=== PATIENT | female | born 1995 | race Caucasian/White ===

== ENCOUNTER 2019-05-24 13:37 | Emergency (ER) | payer OTHER ==
[~2019-05-24] VITALS: Ht 167.6 cm; Wt 50.8 kg
[2019-05-24] MEDS ORDERED: NKM (13:43)
[2019-05-24 13:58] VITALS: BP 95/69
--- NOTE | 2019-05-24 13:59 | NUR ---
ED Nurse Note: pt came to ed c/o laceration on the left hand, pt stated she tried to grab a ceramic pot, didnt know if it broke on her hand or if its broken when she reached it. pt is complaining of 10/10 pain. noted with laceration on the left hand and is actively bleeding. pressure placed on pt left hand and elevated it. will continue to monitor.
[2019-05-24] MEDS ORDERED: Bacitracin Oint UD TOPIC ONE (14:30)
[2019-05-24] MEDS ORDERED: LORazepam 0.5mg tab ORAL ONE (14:30)
[2019-05-24] MEDS ORDERED: Lidocaine 2% 20mg/ml/Epi 0.005mg/ml 20ml vial INJ ONE (14:30)
[2019-05-24] MEDS ORDERED: CEPHALEXIN500 MG ORAL (15:04)
[2019-05-24] MEDS ORDERED: BACITRACIN-P28.35 GM TP (15:04)
--- NOTE | 2019-05-24 15:04 | Emergency Room Report ---
History of Present Illness General Chief Complaint: Laceration Source: Patient Present Illness HPI 24-year-old female presents to the emergency department complaining of 10 out of 10 severity pain, tenderness, open wound and bleeding to the lateral aspect of the left hand x1 day. Patient reports she was reaching into cupboard and a broken ceramic dish lacerated her. Patient denies small fragments or suspicion of foreign bodies. Patient denies taking blood thinning medication she states she is up-to-date with her tetanus vaccination. Patient reports that palpation exacerbates her pain. She denies any relieving factors at this time. Patient also reports significant history of anxiety and reiterates that she is very nervous about her ED visit today. Denies paresthesias, or skin color/ temperature changes to the affected extremity. She denies suspicion of . Allergies: Coded Allergies: No Known Allergies (Unverified , 05/24/19) Patient History Past Medical History: see triage record Past Surgical History: none Pertinent Family History: none Now: No Immunizations: UTD Reviewed Nursing Documentation: PMH: Agreed; PSxH: Agreed Nursing Documentation-PMH Past Medical History: No Stated History Review of Systems All Other Systems: negative except mentioned in HPI Physical Exam Vital Signs Date Time Temp Pulse Resp B/P (MAP) Pulse Ox O2 Delivery O2 Flow Rate FiO2 05/24/19 13:41 98.1 69 17 95/69 (78) 100 Room Air Sp02 EP Interpretation: reviewed, normal General Appearance: alert, GCS 15, non-toxic, mild distress - anxious Head: normocephalic, atraumatic Eyes: bilateral eye normal inspection, bilateral eye PERRL ENT: hearing grossly normal, normal voice Neck: full range of motion Respiratory: lungs clear, normal breath sounds, speaking full sentences Cardiovascular #1: regular rate, rhythm, normal capillary refill Musculoskeletal: back normal, gait/station normal, normal range of motion, non- tender Neurologic: alert, oriented x3, responsive, motor strength/tone normal, sensory intact, speech normal, grossly normal Psychiatric: judgement/insight normal, anxious Skin: laceration - left hand laceration approx 3 cm in length, located at the lateral aspect just proximal to the left 5th digit. Procedures Laceration/Wound Repair Laceration/Wound Repair : Consent: Verbal Wound Location: upper extremity - left hand Wound's Depth, Shape: linear Wound Length (cm): 3 Wound Explored: clean Irrigated w/ Saline (ccs): 300 Anesthesia: Lidocaine w/ Epi Volume Anesthetic (ccs): 3 Wound Repaired With: sutures Suture Size/Type: 4:0 Number of Sutures: 5 Layer Closure?: No Sterile Dressing Applied?: Yes Splint Applied?: Yes Type of Splint Applied: long finger splint Sling Applied?: No Patient Tolerated: Well Complications: None Medical Decision Making PA Attestation Dr. Sandra Is my supervising Physician whom patient management has been discussed with. Diagnostic Impression: Primary Impression: Laceration ER Course 24-year-old female presents to the emergency department complaining of 10 out of 10 severity pain, tenderness, open wound and bleeding to the lateral aspect of the left hand x1 day. Patient reports she was reaching into cupboard and a broken ceramic dish lacerated her. Patient denies small fragments or suspicion of foreign bodies. Patient denies taking blood thinning medication she states she is up-to-date with her tetanus vaccination. Patient reports that palpation exacerbates her pain. She denies any relieving factors at this time. Patient also reports significant history of anxiety and reiterates that she is very nervous about her ED visit today. Denies paresthesias, or skin color/ temperature changes to the affected extremity. She denies suspicion of . Ddx considered but are not limited to laceration, tendon injury, cellulitis, amputation Vital signs: are WNL, pt. is afebrile H&PE are most consistent with: left hand laceration approx 3 cm in length ORDERS: none required at this time, the diagnosis is clinical ED INTERVENTIONS: - Ativan 0,5 PO -Tylenol 650 mg PO - The wound was copiously irrigated with normal saline, and explored for foreign body for which no FB was found. - pt. is anesthetized with 2%lidocaine w. epi. - The wound was approximated and closed using 5 interrupted 4.0 Ethilon sutures. -Bacitracin and sterile dressing is applied. Long Finger Splint applied to the left 5th digit by printing technician. Pt. remains neurovascularly intact. Discussed with patient: That we make every effort to approximate the laceration as best as we can so that scarring will be as cosmetically pleasing as possible with our limited cosmetic skill set in the Emergency dept. Regardless of our best efforts there will be scarring after laceration repair. The extent of scarring is unknown at this time. DISCHARGE: At this time pt. is stable for d/c to home. Will provide printed patient care instructions, and any necessary prescriptions. Care plan and follow up instructions have been discussed with the patient prior to discharge. Last Vital Signs Date Time Temp Pulse Resp B/P (MAP) Pulse Ox O2 Delivery O2 Flow Rate FiO2 05/24/19 13:58 98.1 69 17 95/69 100 Room Air Disposition: HOME, SELF-CARE Condition: Stable Referrals: NOT CHOSEN IPA/MD,REFERRING (PCP) Patient Instructions: Laceration Care, Adult Additional Instructions: Take medications as directed. SUTURES TO BE REMOVED IN 10-14 days Follow up with a Primary Care Provider in 3-5 days, even if your symptoms have resolved. --Please review list of primary care clinics, if you do not already have a primary care provider Return sooner to ED if new symptoms occur, or current symptoms become worse. - Please note that this Emergency Department Report was dictated using [employer] account supervisor technology software, occasionally this can lead to erroneous entry secondary to interpretation by the dictation equipment. Mercedes Mercado May 24, 2019 15:04
[2019-05-24 15:24] VITALS: BP 102/71
[2019-05-24 15:25] VITALS: BP 102/71
--- NOTE | 2019-05-24 15:25 | NUR ---
ER DISCHARGE NOTE: Patient is cleared to be discharged per ERMD, pt is aox4, on room air, with stable vital signs. pt was given dc and prescription instructions, pt was able to verbalize understanding, pt id band removed. pt is able to ambulate with steady gait. pt took all belongings.
== END 2019-05-24 15:25 | disposition home or self-care (01) ==
LOC: EMR 13:56
DX: S61.217A Laceration without foreign body of left little finger without damage to nail, initial encounter (principal); W26.9XXA Contact with unspecified sharp object(s), initial encounter; Y93.9 Activity, unspecified; Y92.9 Unspecified place or not applicable
CPT/HCPCS: 29130; 99282; 99283

== ENCOUNTER 2019-05-26 13:08 | Emergency (ER) | payer OTHER ==
[~2019-05-26] VITALS: Ht 167.6 cm; Wt 51.3 kg
[~2019-05-26 13:08] MED LIST: BACITRACIN-P28.35 GM TP; CEPHALEXIN500 MG ORAL; NKM
[2019-05-26 13:30] VITALS: BP 107/67
--- NOTE | 2019-05-26 13:31 | NUR ---
ED Nurse Note: Patient walked in to ER for follow up on Lt lateral hand suture. 5 sutures present. no s/s of infection noted. Patient alert and oriented x4 and ambulatory. skin clean and intact. calm and cooperative.
--- NOTE | 2019-05-26 13:41 | Emergency Room Report ---
History of Present Illness General Chief Complaint: Wound Recheck/Suture Removal Source: Patient Present Illness HPI 24-year-old female with no significant past medical history is here for wound check after suture placement that happened at [facility] 2 days ago. Patient has a splint applied to her finger as well as for sutures to the hypothenar side of her left hand. Patient denies any excess pain complains of pulsatile pain at the site of sutures. Denies fever and chills, pus drainage , numbness and tingling. Is able to problem. Has no motor or sensory deficit. Has been taking her pain medications as well as antibiotics. Denies any other injuries. Denies chest pain, shortness of breath, palpitation, abdominal pain, nausea vomiting, and all other associated symptoms. Allergies: Coded Allergies: No Known Allergies (Unverified , 05/24/19) Patient History Past Medical History: see triage record Past Surgical History: unable to obtain Pertinent Family History: none Last Menstrual Period: 05/2019 Now: No Immunizations: UTD Reviewed Nursing Documentation: PMH: Agreed; PSxH: Agreed Nursing Documentation-PMH Past Medical History: No Stated History Review of Systems All Other Systems: negative except mentioned in HPI Physical Exam Vital Signs Date Time Temp Pulse Resp B/P (MAP) Pulse Ox O2 Delivery O2 Flow Rate FiO2 05/26/19 13:17 98.2 83 16 107/67 (80) 98 Room Air Sp02 EP Interpretation: reviewed, normal General Appearance: normal inspection, well appearing, no apparent distress Head: normocephalic, atraumatic Eyes: bilateral eye normal inspection, bilateral eye PERRL ENT: normal ENT inspection, hearing grossly normal, normal pharynx Neck: normal inspection, full range of motion, supple Respiratory: normal inspection, chest non-tender, lungs clear, no rhonchi, no wheezing Cardiovascular #1: normal inspection, normal peripheral pulses, no murmur, normal capillary refill Cardiovascular #2: 2+ radial (R), 2+ radial (L) Gastrointestinal: normal inspection, non tender, soft, no peritonitis Rectal: deferred Genitourinary: no CVA tenderness Musculoskeletal: back normal, digits/nails normal, normal range of motion Neurologic: normal inspection, alert, oriented x3, responsive Psychiatric: normal inspection, judgement/insight normal Skin: other - healing wound with 4 sutures intact in left hypothenar no pus drainage, no erythema or edema Lymphatic: normal inspection, no adenopathy Medical Decision Making PA Attestation All my diagnosis and treatment plans were reviewed ad discussed with my supervising physician Dr. Montano Diagnostic Impression: Primary Impression: Encounter for wound care ER Course 24-year-old female with no significant past medical history is here for wound check after suture placement that happened at [facility] 2 days ago. Patient has a splint applied to her finger as well as for sutures to the hypothenar side of her left hand. Patient denies any excess pain complains of pulsatile pain at the site of sutures. Denies fever and chills, pus drainage , numbness and tingling. Is able to problem. Has no motor or sensory deficit. Has been taking her pain medications as well as antibiotics. Denies any other injuries. Denies chest pain, shortness of breath, palpitation, abdominal pain, nausea vomiting, and all other associated symptoms. Ddx considered but are not limited to : Superficial laceration, deep laceration , tendon involvement with laceration, laceration with foreign body, healing laceration Vital signs: are WNL, pt. is afebrile H&PE are most consistent with: Laceration ORDERS: None ED INTERVENTIONS: Wound clean and dress DISCHARGE: At this time pt. is stable for d/c to home. Will provide printed patient care instructions, and any necessary prescriptions. Care plan and follow up instructions have been discussed with the patient prior to discharge. Sutures to be in 5 to 7 days. I advised the patient to continue taking her medication keep splint on and only times daytime as patient cannot look at the wound. Leave wound open to air at night. Pelvic strenuous physical activity with affected side. Last Vital Signs Date Time Temp Pulse Resp B/P (MAP) Pulse Ox O2 Delivery O2 Flow Rate FiO2 05/26/19 13:30 98.2 68 16 107/67 98 Room Air Disposition: HOME, SELF-CARE Condition: Stable Patient Instructions: Wound Check Kenny Kong May 26, 2019 13:41
[2019-05-26] MEDS ORDERED: Bacitracin Oint UD TOPIC ONE (13:45)
[2019-05-26 13:50] VITALS: BP 107/67
--- NOTE | 2019-05-26 13:51 | NUR ---
ER DISCHARGE NOTE: Patient is cleared to be discharged per ERPA after stiches rewrapped, pt is aox4, on room air, with stable vital signs. pt was given dc and prescription instructions, pt was able to verbalize understanding, pt id band removed. pt is able to ambulate with steady gait. pt took all belongings.
== END 2019-05-26 13:50 | disposition home or self-care (01) ==
LOC: EMR 13:50
DX: Z48.02 Encounter for removal of sutures (principal); Z48.817 Encounter for surgical aftercare following surgery on the skin and subcutaneous tissue; M25.542 Pain in joints of left hand
CPT/HCPCS: 29130; 99282

== ENCOUNTER 2019-06-08 17:02 | Emergency (ER) | payer OTHER ==
[~2019-06-08] VITALS: Ht 167.6 cm; Wt 52.2 kg
--- NOTE | 2019-06-08 17:33 | NUR ---
ED Nurse Note: Pt came in from home due to L hand stitches removal, placed on 05/24/19. No complaint of pain shanta. Wound site clean and dry, warm to touch. AOx4, VSS shanta. Will cont to monitor.
[2019-06-08 17:34] VITALS: BP 93/57
--- NOTE | 2019-06-08 17:47 | Emergency Room Report ---
History of Present Illness General Chief Complaint: Wound Recheck/Suture Removal Source: Patient Present Illness HPI 24-year-old female with no significant past medical history here requesting removal of sutures on the left hand. She had been placed in 2 weeks ago. Denies any fever and chills, pus drainage, erythema around the site of the sutures. Denies numbness and tingling. Patient has finished her antibiotics and pain medication. Denies all other associated symptoms. Allergies: Coded Allergies: No Known Allergies (Unverified , 05/24/19) Patient History Past Medical History: see triage record Past Surgical History: unable to obtain Pertinent Family History: none Last Menstrual Period: april Now: No Immunizations: UTD Reviewed Nursing Documentation: PMH: Agreed; PSxH: Agreed Nursing Documentation-PMH Past Medical History: No Stated History Review of Systems All Other Systems: negative except mentioned in HPI Physical Exam Vital Signs Date Time Temp Pulse Resp B/P (MAP) Pulse Ox O2 Delivery O2 Flow Rate FiO2 06/08/19 17:17 98.6 85 16 91/60 (70) 97 Room Air Sp02 EP Interpretation: reviewed, normal General Appearance: normal inspection, well appearing, no apparent distress Head: normocephalic, atraumatic Eyes: bilateral eye normal inspection, bilateral eye PERRL ENT: normal ENT inspection, normal pharynx Neck: normal inspection, supple Respiratory: normal inspection, chest non-tender, no rhonchi, no wheezing Cardiovascular #1: normal inspection, regular rate, rhythm, no murmur Cardiovascular #2: 2+ radial (R), 2+ radial (L) Gastrointestinal: normal inspection, soft Rectal: deferred Genitourinary: no CVA tenderness Musculoskeletal: back normal, digits/nails normal, gait/station normal Neurologic: normal inspection, alert, oriented x3, responsive Psychiatric: normal inspection, judgement/insight normal Skin: other - 5 sutures noted on the left hyperthenar side healed and no pus drainage Lymphatic: normal inspection, no adenopathy Procedures Additional Procedure Procedure Narrative Five 5-0 nylon sutures were removed from the left hand Medical Decision Making PA Attestation All diagnoses and treatment plans were reviewed and discussed with my supervising physician Dr. Coleman Diagnostic Impression: Primary Impression: Encounter for removal of sutures ER Course 24-year-old female with no significant past medical history here requesting removal of sutures on the left hand. She had been placed in 2 weeks ago. Denies any fever and chills, pus drainage, erythema around the site of the sutures. Denies numbness and tingling. Patient has finished her antibiotics and pain medication. Denies all other associated symptoms. Ddx considered but are not limited to : Superficial laceration, deep laceration , tendon involvement with laceration, laceration with foreign body, suture removal Vital signs: are WNL, pt. is afebrile H&PE are most consistent with: Suture removal ORDERS: None ED INTERVENTIONS: Suture removal DISCHARGE: At this time pt. is stable for d/c to home. Will provide printed patient care instructions, and any necessary prescriptions. Care plan and follow up instructions have been discussed with the patient prior to discharge. Wound care after suturing was discussed with patient Last Vital Signs Date Time Temp Pulse Resp B/P (MAP) Pulse Ox O2 Delivery O2 Flow Rate FiO2 06/08/19 17:34 98.6 82 20 93/57 99 Room Air Disposition: HOME, SELF-CARE Condition: Stable Patient Instructions: Suture Removal, Care After Kenny Kong Jun 08, 2019 17:47
[2019-06-08 17:54] VITALS: BP 93/57
--- NOTE | 2019-06-08 17:55 | NUR ---
ER DISCHARGE NOTE: Patient is cleared to be discharged per [facility], pt is aox4, on room air, with stable vital signs. pt was given dc and prescription instructions, pt was able to verbalize understanding, pt id band removed without complications. pt is able to ambulate with steady gait. pt took all belongings.
== END 2019-06-08 17:56 | disposition home or self-care (01) ==
LOC: EMR 17:56
DX: S61.412D Laceration without foreign body of left hand, subsequent encounter (principal); Z48.02 Encounter for removal of sutures
CPT/HCPCS: 99281